=== PATIENT | male | born 1960 | race Caucasian/White ===

== ENCOUNTER 2018-05-20 03:54 | Emergency (ER) | payer MEDICARE ==
[~2018-05-20] VITALS: Ht 177.8 cm; Wt 68.0 kg
--- NOTE | 2018-05-20 04:36 | PHYS DOC ---
Past Medical History Past Medical History: Arthritis Additional Past Surgical Histo: NASAL SURGERY, RIGHT KNEE Alcohol Use: Heavy Drug Use: Marijuana, Other Social History Narrative: PT STATES THAT HE HAS HISTORY BUT APPEARS TO BE UNDER THE INFLUENCE Adult General Chief Complaint Chief Complaint: HIP PAIN HPI HPI Patient is a 58-year-old male who presents to the emergency department for evaluation. He states he has a past history of rheumatoid arthritis. He states that for the past 2 months or so he has been having left hip pain. He states that he has hip pain and some "clicking" in this hip from time to time, but states that about 2 months ago he rolled out of bed, and landed on his left hip , and has been having persistent pain since that time. He is able to ambulate but it is painful to do so. He finds that using crutches seem to help improve his pain. He states he has been taking naproxen for his pain. It does not take any prescription medications. He states he saw a physician in [facility], where he lives, and had x-rays done about 2 months ago but never went back for the follow-up her test results, as the physician had referred him for blood testing with the patient never obtained. He denies any numbness or weakness, or any further injuries. He states he is coming to the emergency department because he is having persistent pain. He states he is originally from this area and is visiting family in this area, which is the reason for his presentation to the emergency department. Other than as stated above there are no alleviating or exacerbating factors to the patient's symptoms. Review of Systems Review of Systems Constitutional: Denies fever or chills [] Eyes: Denies change in visual acuity, redness, or eye pain [] HENT: Denies nasal congestion or sore throat [] Respiratory: Denies cough or shortness of breath [] Cardiovascular: The patient denies any shortness of breath, chest pain, palpitations, or orthopnea [] GI: Denies abdominal pain, nausea, vomiting, bloody stools or diarrhea [] : Denies dysuria or hematuria [] Musculoskeletal: Denies back pain or joint pain except as noted in the history of present illness.[] Integument: Denies rash or skin lesions [] Neurologic: Denies headache, focal weakness or sensory changes [] Endocrine: Denies polyuria or polydipsia [] All other systems were reviewed and found to be within normal limits, except as documented in this note. Allergies Allergies Allergies Coded Allergies Type Severity Reaction Last Updated Verified No Known Drug Allergies 05/20/18 No Physical Exam Physical Exam PHYSICAL EXAM: CONSTITUTIONAL: Well developed, well nourished HEAD: normocephalic, atraumatic EENT: PERRL, EOMI. Conjunctivae normal color, sclerae non-icteric; moist mucous membranes. NECK: Supple, non-tender; no meningismus. LUNGS: Lungs CTA, breathing even and unlabored. Normal air movement. HEART: Regular tachycardia, no murmur CHEST: No deformity; non-tender ABDOMEN: The abdomen is soft, and non-tender, no masses or bruits. EXTREM: Normal ROM; no deformity, no calf tenderness. Normal pulses palpable in all extremities. There is no pedal edema. There is normal range of motion in the hips. There is no definite tenderness to palpation of the left hip. There is an occasional clicking sound audible and the patient will flex his hip slightly, with his hip somewhat internally rotated. This is not reproducible persistently, and is not reproducible with passive range of motion. SKIN: No rash; no diaphoresis NEURO: Alert; normal speech and cognition; CN's grossly intact; strength grossly intact without focal deficit. BACK: No CVA TTP. Current Patient Data Vital Signs Vital Signs Date Time Temp Pulse Resp B/P (MAP) Pulse Ox O2 Delivery O2 Flow Rate FiO2 05/20/18 03:59 97.8 115 18 149/102 (118) 94 Room Air 97.8 EKG EKG [] Radiology/Procedures Radiology/Procedures [ER physician preliminary left hip x-ray interpretation: Severe degenerative changes of the left hip without definite acute fracture.] This appears to have progressed significantly, compared to preliminary review of the images from an MRI soft tissue of the lower extremities from 2009. Course & Med Decision Making Course & Med Decision Making Pertinent Imaging studies reviewed. (See chart for details) [5:10 AM: The patient's condition remained stable. Discussed test results with the patient, the need for close orthopedic follow-up, either in this area. Plans on staying here for a while, or in [place], [place] where he lives, and we discussed return precautions.] Dragon Disclaimer Dragon Disclaimer This electronic medical record was generated, in whole or in part, using a voice recognition dictation system. Departure Departure Impression: Primary Impression: Arthritis of left hip Additional Impression: Left hip pain Disposition: HOME, SELF-CARE Condition: STABLE Referrals: BRIAN PETERSON II, MD Patient Instructions: Arthritis, Degenerative-Brief, Arthritis, Nonspecific, Hip Pain Scripts Diclofenac Sodium (DICLOFENAC SODIUM) 50 Mg Tablet.dr 1 TAB PO BID, #20 TAB 0 Refills Prov: RUFINA GOMES MD 05/20/18 Problem Qualifiers RUFINA GOMES MD May 20, 2018 04:36
[2018-05-20] MEDS ORDERED: DICL50TA4 PO (05:13)
[2018-05-20 05:18] VITALS: BP 140/94
--- NOTE | 2018-05-20 07:58 | RAD ---
Left hip, 2 views, 05/20/2018: HISTORY: Hip pain There is severe narrowing of the left hip joint with subchondral sclerosis, cyst formation and articular irregularity. No fracture or dislocation is identified. Moderate arterial calcifications are present. IMPRESSION: Severe osteoarthritis at the left hip joint. Electronically signed by: Dawit Pickard MD (05/20/2018 7:54 AM) [facility]
== END 2018-05-20 05:19 | disposition home or self-care (01) ==
LOC: ER 03:54
DX: M16.12 Unilateral primary osteoarthritis, left hip (principal); F10.20 Alcohol dependence, uncomplicated
CPT/HCPCS: 73502; 99284